=== PATIENT | female | born 1935 | race Caucasian/White ===

== ENCOUNTER 2021-07-30 09:59 | Inpatient (IN) ==
[2021-07-30] MEDS ORDERED: Ondansetron 4 MG/2 ML VIAL IVP PRN (14:00)
[2021-07-30] MEDS ORDERED: Naloxone 0.4 MG/ML INJ IVP PRN (14:00)
[2021-07-30] MEDS ORDERED: Nitroglycerin 0.4 MG TAB.SUBL SL PRN (14:29)
[2021-07-30] MEDS: Ringers Solution, Lactated 1,000 ML IVC SCH (14:41)
[2021-07-30] MEDS: rOPINIRole 0.25 MG TABLET PO SCH (20:45)
[2021-07-31 02:37] LABS: Alanine Aminotransferase 9 Units/L (7-52); Albumin 3.1 g/dL (3.5-5.7); Albumin/Globulin Ratio 1.1 (1.1-2.2); Alkaline Phosphatase 72 Units/L (34-104); Aspartate Amino Transferase 20 Units/L (13-39); BUN/Creatinine Ratio 13 (6-26); Bilirubin,Total 0.5 mg/dL (0.3-1.0); Blood Urea Nitrogen 6 mg/dL (8-23); Calcium 8.3 mg/dL (8.6-10.3); Carbon Dioxide 24 mEq/L (23-29); Chloride 104 mEq/L (98-107); Globulin 2.8 g/dL (2.4-3.5); Glucose 89 mg/dL (70-105); Magnesium 1.4 mg/dL (1.6-2.6); Osmolality,Calculated 283 (280-300); Phosphorous 2.4 mg/dL (2.7-4.5); Potassium 3.2 mEq/L (3.5-5.1); Sodium 138 mEq/L (136-145); Total Protein 5.9 g/dL (6.4-8.9); eGFR For African Americans > 60 (> 60); eGFR For Non-African Americans > 60 (> 60)
[2021-07-31] MEDS: Ringers Solution, Lactated 1,000 ML IVC SCH (03:06)
[2021-07-31] MEDS: *HR* Enoxaparin 40 MG/0.4 ML SYRINGE SQ SCH (06:24)
[2021-07-31] MEDS: Pantoprazole 40 MG VIAL IVP SCH (07:47)
[2021-07-31] MEDS: [UNRECOGNIZED DRUG - OTHER] PO SCH ×4 (10:29→20:53)
[2021-07-31] MEDS: amLODIPine 5 MG TABLET PO SCH (10:43)
[2021-07-31] MEDS ORDERED: Ringers Solution, Lactated 1,000 ML IVC SCH (12:30)
[2021-07-31] MEDS: traZODone 50 MG TABLET PO SCH (20:39)
[2021-07-31] MEDS: Mirtazapine 15 MG TABLET PO SCH (20:39)
[2021-07-31] MEDS: rOPINIRole 0.25 MG TABLET PO SCH (20:46)
[2021-07-31] MEDS ORDERED: Calcium Gluconate 1gm/50mL 1 GM/50 ML BAG IVPB ONE (23:30)
[2021-07-31] MEDS ORDERED: Potassium Phosphate 44 MEQ in 0.9 % Sodium Chloride 250 ML IVPB ONE (23:45)
[2021-08-01 02:35] LABS: Basophils % 0.3 %; Eosinophils # 0.1 K/mcL (0.0-0.6); Eosinophils % 1.3 %; Hemoglobin 12.5 g/dL (11.5-15.4); Immature Granulocytes % 0.4 % (0-4); Lymphocytes # 2.3 K/mcL (0.6-4.6); Lymphocytes % 31.4 %; Mean Corpuscular HGB Conc 32.1 g/dL (31.6-35.5); Mean Corpuscular Hemoglobin 29.9 pg (28.0-33.3); Mean Corpuscular Volume 93.3 fL (83.0-100.0); Mean Platelet Volume 10.4 fL (9.4-12.4); Monocytes # 0.5 K/mcL (0.0-1.3); Monocytes % 6.6 %; Neutrophils # 4.5 K/mcL (1.6-8.9); Platelet Count 144 K/mcL (140-400); Red Blood Count 4.18 M/mcL (3.82-4.97); White Blood Count 7.4 K/mcL (4.3-11.1)
[2021-08-01 03:01] LABS: BUN/Creatinine Ratio 10 (6-26); Blood Urea Nitrogen 5 mg/dL (8-23); Calcium 8.8 mg/dL (8.6-10.3); Carbon Dioxide 27 mEq/L (23-29); Chloride 100 mEq/L (98-107); Chol/HDL Ratio 2.7 (0-4.9); Cholesterol 122 mg/dL (< 200); Glucose 118 mg/dL (70-105); HDL Cholesterol 46 mg/dL (40-59); LDL Cholesterol,Calculated 54 mg/dL (< 100); Osmolality,Calculated 286 (280-300); Potassium 3.3 mEq/L (3.5-5.1); Sodium 139 mEq/L (136-145); Triglycerides 111 mg/dL (< 150); eGFR For African Americans > 60 (> 60); eGFR For Non-African Americans > 60 (> 60)
[2021-08-01] MEDS: *HR* Enoxaparin 40 MG/0.4 ML SYRINGE SQ SCH (05:53)
[2021-08-01] MEDS ORDERED: Potassium Phosphate 44 MEQ in 0.9 % Sodium Chloride 250 ML IVPB ONE (07:13)
[2021-08-01] MEDS: amLODIPine 5 MG TABLET PO SCH (10:30)
[2021-08-01] MEDS: Pantoprazole 40 MG VIAL IVP SCH (10:30)
[2021-08-01] MEDS: [UNRECOGNIZED DRUG - OTHER] PO SCH ×4 (10:34→20:28)
[2021-08-01] MEDS ORDERED: *HR* FentaNYL PATCH 12 MCG PATCH TD SCH (14:00)
[2021-08-01] MEDS ORDERED: *HR* FentaNYL PATCH 50 MCG PATCH TD SCH (14:00)
[2021-08-01] MEDS: rOPINIRole 0.25 MG TABLET PO SCH (20:27)
[2021-08-01] MEDS: traZODone 50 MG TABLET PO SCH (20:27)
[2021-08-01] MEDS: Mirtazapine 15 MG TABLET PO SCH (20:27)
[2021-08-01] MEDS: PrednisoLONE Acetate 1% Opth 5 ML BOTTLE BOTH EYES SCH (20:28)
[2021-08-02] MEDS: *HR* Enoxaparin 40 MG/0.4 ML SYRINGE SQ SCH (05:39)
[2021-08-02] MEDS: Pantoprazole 40 MG VIAL IVP SCH (09:48)
[2021-08-02] MEDS: amLODIPine 5 MG TABLET PO SCH (09:49)
[2021-08-02] MEDS: [UNRECOGNIZED DRUG - OTHER] PO SCH (09:49)
[2021-08-02] MEDS ORDERED: Lidocaine -MPF 2% 5 ML VIAL ONE (14:30)
[2021-08-02] MEDS ORDERED: *HR* FentaNYL (PF) 100 MCG/2 ML VIAL ONE (14:30)
[2021-08-02] MEDS ORDERED: *HR* Propofol 200 MG/20 ML VIAL IVP ONE (14:31)
[2021-08-02] MEDS ORDERED: Ondansetron 4 MG/2 ML VIAL ONE (14:31)
[2021-08-02] MEDS ORDERED: Lidocaine HCL 4 ML Topical Solution (Laryng-O-Jet Kit Sterile Pak) TP ONE (14:32)
[2021-08-02] MEDS ORDERED: Ringers Solution, Lactated 1,000 ML IVC SCH (14:45)
[2021-08-02] MEDS ORDERED: Ipratropium/Albuterol Neb 3 ML IH PRN (14:56)
[2021-08-02] MEDS: rOPINIRole 0.25 MG TABLET PO SCH (20:18)
[2021-08-02] MEDS: PrednisoLONE Acetate 1% Opth 5 ML BOTTLE BOTH EYES SCH (20:18)
[2021-08-02] MEDS: traZODone 50 MG TABLET PO SCH (20:19)
[2021-08-02] MEDS: Mirtazapine 15 MG TABLET PO SCH (20:19)
[2021-08-03 02:27] LABS: Basophils % 0.3 %; Hematocrit 34.6 % (35.3-44.9); Immature Granulocytes % 0.3 % (0-4); Lymphocytes # 0.6 K/mcL (0.6-4.6); Lymphocytes % 17.3 %; Mean Corpuscular HGB Conc 31.8 g/dL (31.6-35.5); Mean Corpuscular Hemoglobin 29.5 pg (28.0-33.3); Mean Corpuscular Volume 92.8 fL (83.0-100.0); Mean Platelet Volume 10.4 fL (9.4-12.4); Monocytes # 0.2 K/mcL (0.0-1.3); Monocytes % 6.4 %; Neutrophils # 2.6 K/mcL (1.6-8.9); Platelet Count 113 K/mcL (140-400); Red Blood Count 3.73 M/mcL (3.82-4.97); Red Cell Distribution Width 13.3 % (11.5-14.5); Segmented Neutrophils % 75.7 %; White Blood Count 3.4 K/mcL (4.3-11.1)
[2021-08-03 02:46] LABS: BUN/Creatinine Ratio 21 (6-26); Blood Urea Nitrogen 10 mg/dL (8-23); Calcium 8.4 mg/dL (8.6-10.3); Carbon Dioxide 28 mEq/L (23-29); Chloride 106 mEq/L (98-107); Glucose 146 mg/dL (70-105); Magnesium 1.8 mg/dL (1.6-2.6); Osmolality,Calculated 290 (280-300); Phosphorous 3.4 mg/dL (2.7-4.5); Potassium 4.4 mEq/L (3.5-5.1); Sodium 139 mEq/L (136-145); eGFR For African Americans > 60 (> 60); eGFR For Non-African Americans > 60 (> 60)
[2021-08-03] MEDS: *HR* Enoxaparin 40 MG/0.4 ML SYRINGE SQ SCH (05:32)
[2021-08-03] MEDS ORDERED: polyethylene glycoL 3350 17 GM POWD.PACK PO PRN (12:50)
[2021-08-03] MEDS: amLODIPine 5 MG TABLET PO SCH (20:10)
[2021-08-03] MEDS: Lactobacillus 1 EACH CAP.SPRINK PO SCH ×2 (20:10→20:18)
[2021-08-03] MEDS: rOPINIRole 0.25 MG TABLET PO SCH (20:16)
[2021-08-03] MEDS: Mirtazapine 15 MG TABLET PO SCH (20:16)
[2021-08-03] MEDS: traZODone 50 MG TABLET PO SCH (20:16)
[2021-08-03] MEDS: PrednisoLONE Acetate 1% Opth 5 ML BOTTLE BOTH EYES SCH (20:19)
[2021-08-04 03:20] VITALS: PULSE 73
[2021-08-04] MEDS: *HR* Enoxaparin 40 MG/0.4 ML SYRINGE SQ SCH (05:22)
[2021-08-04 07:30] VITALS: BP 122/69; TEMP 98.5; O2SAT 93
[2021-08-04] MEDS: Lactobacillus 1 EACH CAP.SPRINK PO SCH (08:45)
[2021-08-04] MEDS: amLODIPine 5 MG TABLET PO SCH (09:05)
[2021-08-04 10:58] LABS: Adenovirus Not Detected (Not Detect); Bordetella Pertussis Not Detected (Not Detect); Chlamydophila pneumoniae Not Detected (Not Detect); Coronavirus 229E Not Detected (Not Detect); Coronavirus HKU1 Not Detected (Not Detect); Coronavirus NL63 Not Detected (Not Detect); Coronavirus OC43 Not Detected (Not Detect); Human Metapneumovirus Not Detected (Not Detect); Human Rhinovirus/Enterovirus Not Detected (Not Detect); Influenza A Subtype 2009 H1 Not Detected (Not Detect); Influenza B Not Detected (Not Detect); Mycoplasma pneumoniae Not Detected (Not Detect); Parainfluenza Virus 1 Not Detected (Not Detect); Parainfluenza Virus 2 Not Detected (Not Detect); Parainfluenza Virus 3 Not Detected (Not Detect); Parainfluenza Virus 4 Not Detected (Not Detect); Respiratory Syncytial Virus Not Detected (Not Detect); SARS-CoV-2 Not Detected (Not Detect)
== END 2021-08-04 13:22 | DRG 435 ==
LOC: 3ANU → SUATTDRO 13:07
PROVIDERS: ADMIT Student in an Organized Health Care Education/Training Program; ATTEND Family Medicine
PROC: ENDOEUS (2021-08-02 14:00)

== ENCOUNTER 2022-03-18 15:34 | Inpatient (IN) ==
[2022-03-18 17:48] LABS: Basophils % 0.1 %; Eosinophils % 0.1 %; Mean Corpuscular Volume 96.9 fL (83.0-100.0)
[2022-03-18 17:50] LABS: Hematocrit 28.3 % (35.3-44.9); Immature Granulocytes % 2.2 % (0-4); Immature Platelets 12.7 % (1.1-6.1); Lymphocytes # 0.4 K/mcL (0.6-4.6); Lymphocytes % 4.9 %; Mean Corpuscular HGB Conc 31.8 g/dL (31.6-35.5); Mean Corpuscular Hemoglobin 30.8 pg (28.0-33.3); Monocytes # 0.1 K/mcL (0.0-1.3); Monocytes % 1.4 %; Neutrophils # 6.7 K/mcL (1.6-8.9); Red Blood Count 2.92 M/mcL (3.82-4.97); Red Cell Distribution Width 19.3 % (11.5-14.5); Segmented Neutrophils % 91.3 %; White Blood Count 7.3 K/mcL (4.3-11.1)
[2022-03-18 17:55] LABS: INR 1.7; Prothrombin Time 18.4 Seconds (9.4-12.1)
[2022-03-18 18:07] LABS: Alanine Aminotransferase 11 Units/L (7-52); Albumin 2.4 g/dL (3.5-5.7); Albumin/Globulin Ratio 0.8 (1.1-2.2); Alkaline Phosphatase 75 Units/L (34-104); Aspartate Amino Transferase 25 Units/L (13-39); BUN/Creatinine Ratio 22 (6-26); Bilirubin,Direct 0.2 mg/dL (0.0-0.2); Bilirubin,Indirect 0.5 mg/dL (0.0-1.0); Bilirubin,Total 0.7 mg/dL (0.3-1.0); Blood Urea Nitrogen 20 mg/dL (8-23); Calcium 7.9 mg/dL (8.6-10.3); Carbon Dioxide 32 mEq/L (23-29); Chloride 95 mEq/L (98-107); Globulin 2.9 g/dL (2.4-3.5); Glucose 154 mg/dL (70-105); Osmolality,Calculated 282 (280-300); Potassium 3.8 mEq/L (3.5-5.1); Sodium 133 mEq/L (136-145); Total Protein 5.3 g/dL (6.4-8.9); Troponin I 0.03 ng/mL (< 0.04); eGFR For African Americans > 60 (> 60); eGFR For Non-African Americans 60 (> 60)
[2022-03-18 18:15] LABS: Bilirubin,Urine Negative (Negative); Blood,Urine Trace (Negative); Calcium Oxalate Crystals,Urine Present per hpf; Clarity,Urine Turbid (Clear); Color,Urine Yellow (Yellow); Glucose,Urine (UA) Normal (Normal); Hyaline Casts,Urine Moderate per lpf (None Seen); Ketones,Urine Negative (Negative); Leukocyte Esterase,Urine Negative (Negative); Mucus,Urine Few per lpf (None-Few); Nitrite,Urine Negative (Negative); PH,Urine 5.5 pH Units (5.0-8.0); Protein,Urine Trace mg/dL (Neg-Trace); Specific Gravity,Urine 1.019 (1.010-1.025); Squamous Epithelial Cell,Urine Few per hpf (None-Few); Urobilinogen,Urine Normal (Normal)
[2022-03-18 18:21] LABS: Platelet Count 50 K/mcL (140-400)
[2022-03-18] MEDS ORDERED: 0.9 % Sodium Chloride 1,000 ML IV ONE ×2 (20:29→22:03)
[2022-03-18] MEDS ORDERED: Iopamidol - 370 500 ML MLS IVP ONE (20:30)
[2022-03-18 22:13] LABS: Adenovirus Not Detected (Not Detect); Bordetella Pertussis Not Detected (Not Detect); Chlamydophila pneumoniae Not Detected (Not Detect); Coronavirus 229E Not Detected (Not Detect); Coronavirus HKU1 Not Detected (Not Detect); Coronavirus NL63 Not Detected (Not Detect); Coronavirus OC43 Not Detected (Not Detect); Human Metapneumovirus Not Detected (Not Detect); Human Rhinovirus/Enterovirus Not Detected (Not Detect); Influenza A Subtype 2009 H1 Not Detected (Not Detect); Influenza B Not Detected (Not Detect); Mycoplasma pneumoniae Not Detected (Not Detect); Parainfluenza Virus 1 Not Detected (Not Detect); Parainfluenza Virus 2 Not Detected (Not Detect); Parainfluenza Virus 3 Not Detected (Not Detect); Parainfluenza Virus 4 Not Detected (Not Detect); Respiratory Syncytial Virus Not Detected (Not Detect); SARS-CoV-2 Not Detected (Not Detect)
[2022-03-18] MEDS ORDERED: Naloxone 0.4 MG/ML INJ IVP PRN (23:23)
[2022-03-19] MEDS: Cefepime HCl 2,000 MG in 0.9 % Sodium Chloride 10 ML IVP SCH ×3 (02:19→15:25)
[2022-03-19] MEDS: *HR* OxyCODONE Immed Rel 5 MG TABLET PO PRN ×3 (02:33→13:27)
[2022-03-19 03:04] LABS: Hemoglobin 8.3 g/dL (11.5-15.4); Mean Corpuscular Hemoglobin 30.5 pg (28.0-33.3); Red Blood Count 2.72 M/mcL (3.82-4.97)
[2022-03-19 03:06] LABS: Hematocrit 26.3 % (35.3-44.9); Immature Platelets 11.2 % (1.1-6.1); Mean Corpuscular HGB Conc 31.6 g/dL (31.6-35.5); Mean Corpuscular Volume 96.7 fL (83.0-100.0); Mean Platelet Volume 12.5 fL (9.4-12.4); Red Cell Distribution Width 19.5 % (11.5-14.5); White Blood Count 3.4 K/mcL (4.3-11.1)
[2022-03-19 03:10] LABS: Platelet Count 45 K/mcL (140-400)
[2022-03-19 03:22] LABS: Alanine Aminotransferase 9 Units/L (7-52); Albumin 2.3 g/dL (3.5-5.7); Albumin/Globulin Ratio 0.9 (1.1-2.2); Alkaline Phosphatase 70 Units/L (34-104); Aspartate Amino Transferase 23 Units/L (13-39); BUN/Creatinine Ratio 23 (6-26); Bilirubin,Total 0.7 mg/dL (0.3-1.0); Blood Urea Nitrogen 18 mg/dL (8-23); Calcium 7.4 mg/dL (8.6-10.3); Carbon Dioxide 31 mEq/L (23-29); Chloride 100 mEq/L (98-107); Globulin 2.5 g/dL (2.4-3.5); Glucose 111 mg/dL (70-105); Osmolality,Calculated 283 (280-300); Potassium 3.5 mEq/L (3.5-5.1); Sodium 135 mEq/L (136-145); Total Protein 4.8 g/dL (6.4-8.9); eGFR For African Americans > 60 (> 60); eGFR For Non-African Americans > 60 (> 60)
[2022-03-19 03:44] LABS: Eosinophils # 0.1 K/mcL (0.0-0.6); Lymphocytes # 0.7 K/mcL (0.6-4.6); Neutrophils # 2.6 K/mcL (1.6-8.9)
[2022-03-19 03:45] LABS: Anisocytosis 1+ (Not Present); Hypochromasia Present (Not Present); Platelet Estimate Decreased (Normal)
[2022-03-19] MEDS ORDERED: *HR* Enoxaparin 30 MG/0.3 ML SYRINGE SQ SCH (06:00)
[2022-03-19] MEDS ORDERED: Morphine Sulfate Oral CONC 10 MG/0.5 ML ORAL.SYG PO PRN (07:28)
[2022-03-19] MEDS ORDERED: Ipratropium/Albuterol Neb 3 ML IH PRN ×2 (07:28→09:17)
[2022-03-19] MEDS ORDERED: *HR* FentaNYL PATCH 75 MCG PATCH TD SCH (07:30)
[2022-03-19] MEDS ORDERED: Naloxone 0.4 MG/ML INJ IVP PRN (09:17)
[2022-03-19] MEDS: Morphine Sulfate Oral CONC 10 MG/0.5 ML ORAL.SYG PO PRN ×2 (11:31→23:45)
[2022-03-19] MEDS ORDERED: Haloperidol Lactate 5 MG/ML VIAL IM ONE (20:27)
[2022-03-19] MEDS: rOPINIRole 0.25 MG TABLET PO SCH (20:43)
[2022-03-19] MEDS ORDERED: rOPINIRole 0.25 MG TABLET PO SCH (21:00)
[2022-03-20] MEDS: Cefepime HCl 2,000 MG in 0.9 % Sodium Chloride 10 ML IVP SCH ×4 (00:04→22:55)
[2022-03-20] MEDS: *HR* Enoxaparin 40 MG/0.4 ML SYRINGE SQ SCH (06:37)
[2022-03-20 08:29] LABS: Eosinophils % 0.2 %; Mean Platelet Volume 12.2 fL (9.4-12.4)
[2022-03-20 08:31] LABS: Hematocrit 25.6 % (35.3-44.9); Hemoglobin 8.4 g/dL (11.5-15.4); Immature Granulocytes % 0.7 % (0-4); Immature Platelets 8.5 % (1.1-6.1); Lymphocytes # 0.7 K/mcL (0.6-4.6); Lymphocytes % 16.6 %; Mean Corpuscular HGB Conc 32.8 g/dL (31.6-35.5); Mean Corpuscular Hemoglobin 30.8 pg (28.0-33.3); Mean Corpuscular Volume 93.8 fL (83.0-100.0); Monocytes # 0.2 K/mcL (0.0-1.3); Monocytes % 4.9 %; Neutrophils # 3.3 K/mcL (1.6-8.9); Red Blood Count 2.73 M/mcL (3.82-4.97); Red Cell Distribution Width 18.7 % (11.5-14.5); Segmented Neutrophils % 77.6 %; White Blood Count 4.3 K/mcL (4.3-11.1)
[2022-03-20 08:49] LABS: Platelet Count 32 K/mcL (140-400)
[2022-03-20 08:50] LABS: BUN/Creatinine Ratio 22 (6-26); Blood Urea Nitrogen 13 mg/dL (8-23); Calcium 7.8 mg/dL (8.6-10.3); Carbon Dioxide 30 mEq/L (23-29); Chloride 99 mEq/L (98-107); Glucose 100 mg/dL (70-105); Magnesium 1.3 mg/dL (1.6-2.6); Osmolality,Calculated 276 (280-300); Potassium 3.2 mEq/L (3.5-5.1); Sodium 133 mEq/L (136-145); eGFR For African Americans > 60 (> 60); eGFR For Non-African Americans > 60 (> 60)
[2022-03-20] MEDS: *HR* OxyCODONE Immed Rel 5 MG TABLET PO PRN (09:55)
[2022-03-20] MEDS ORDERED: Ondansetron ODT 4 MG TAB.RAPDIS PO PRN (11:26)
[2022-03-20] MEDS ORDERED: Iopamidol - 370 500 ML MLS IVP ONE (12:00)
[2022-03-20] MEDS: *HR* Methadone 5 MG TABLET PO SCH ×2 (13:16→22:54)
[2022-03-20] MEDS: Morphine Sulfate Oral CONC 10 MG/0.5 ML ORAL.SYG PO PRN (15:19)
[2022-03-20] MEDS: Gabapentin 300 MG CAPSULE PO SCH ×2 (15:19→22:55)
[2022-03-20] MEDS ORDERED: *HR* OxyCODONE Immed Rel 5 MG TABLET PO PRN ×2 (16:10→16:15)
[2022-03-20] MEDS: Sennosides/Docusate Sodium TABLET PO SCH (20:26)
[2022-03-20] MEDS: traZODone 50 MG TABLET PO SCH (20:27)
[2022-03-20] MEDS: rOPINIRole 0.25 MG TABLET PO SCH (20:28)
[2022-03-21 05:14] LABS: Eosinophils % 0.4 %; Red Cell Distribution Width 18.8 % (11.5-14.5)
[2022-03-21 05:16] LABS: Hemoglobin 7.8 g/dL (11.5-15.4); Lymphocytes # 0.9 K/mcL (0.6-4.6); Lymphocytes % 17.2 %; Mean Corpuscular HGB Conc 32.5 g/dL (31.6-35.5); Mean Corpuscular Hemoglobin 30.5 pg (28.0-33.3); Mean Corpuscular Volume 93.8 fL (83.0-100.0); Mean Platelet Volume 12.9 fL (9.4-12.4); Monocytes # 0.3 K/mcL (0.0-1.3); Monocytes % 6.4 %; Neutrophils # 3.8 K/mcL (1.6-8.9); Red Blood Count 2.56 M/mcL (3.82-4.97)
[2022-03-21 05:28] LABS: BUN/Creatinine Ratio 16 (6-26); Blood Urea Nitrogen 10 mg/dL (8-23); Calcium 7.6 mg/dL (8.6-10.3); Carbon Dioxide 30 mEq/L (23-29); Chloride 103 mEq/L (98-107); Glucose 126 mg/dL (70-105); Magnesium 1.7 mg/dL (1.6-2.6); Osmolality,Calculated 285 (280-300); Phosphorous 1.6 mg/dL (2.7-4.5); Potassium 3.7 mEq/L (3.5-5.1); Sodium 137 mEq/L (136-145); eGFR For African Americans > 60 (> 60); eGFR For Non-African Americans > 60 (> 60)
[2022-03-21 06:06] LABS: Platelet Count 26 K/mcL (140-400)
[2022-03-21 06:50] LABS: Platelet Estimate Marked Decrease (Normal)
[2022-03-21] MEDS: Mirtazapine 15 MG TABLET PO SCH (08:25)
[2022-03-21] MEDS: Gabapentin 300 MG CAPSULE PO SCH ×2 (08:25→16:33)
[2022-03-21] MEDS: *HR* Methadone 5 MG TABLET PO SCH ×2 (08:25→16:05)
[2022-03-21] MEDS: Cefepime HCl 2,000 MG in 0.9 % Sodium Chloride 10 ML IVP SCH (08:26)
[2022-03-21] MEDS: *HR* Enoxaparin 40 MG/0.4 ML SYRINGE SQ SCH (18:07)
[2022-03-21] MEDS: Sennosides/Docusate Sodium TABLET PO SCH (20:40)
[2022-03-21] MEDS: traZODone 50 MG TABLET PO SCH (20:40)
[2022-03-21] MEDS: rOPINIRole 0.25 MG TABLET PO SCH (20:40)
[2022-03-22] MEDS: Gabapentin 300 MG CAPSULE PO SCH ×3 (01:05→16:18)
[2022-03-22] MEDS: *HR* Methadone 5 MG TABLET PO SCH ×3 (01:06→16:18)
[2022-03-22 05:50] LABS: Basophils % 0.2 %
[2022-03-22 05:51] LABS: Eosinophils # 0.1 K/mcL (0.0-0.6); Eosinophils % 1.2 %; Hematocrit 25.3 % (35.3-44.9); Hemoglobin 8.1 g/dL (11.5-15.4); Immature Granulocytes % 1.7 % (0-4); Immature Platelets 8.6 % (1.1-6.1); Lymphocytes # 0.7 K/mcL (0.6-4.6); Lymphocytes % 16.2 %; Mean Corpuscular Hemoglobin 30.3 pg (28.0-33.3); Mean Corpuscular Volume 94.8 fL (83.0-100.0); Monocytes # 0.5 K/mcL (0.0-1.3); Monocytes % 11.2 %; Neutrophils # 2.9 K/mcL (1.6-8.9); Nucleated Red Blood Cells 2.4 /100 WBC (0); Red Blood Count 2.67 M/mcL (3.82-4.97); Segmented Neutrophils % 69.5 %; White Blood Count 4.2 K/mcL (4.3-11.1)
[2022-03-22 06:02] LABS: Platelet Count 34 K/mcL (140-400)
[2022-03-22 06:06] LABS: Magnesium 1.6 mg/dL (1.6-2.6); Phosphorous 1.7 mg/dL (2.7-4.5)
[2022-03-22] MEDS ORDERED: *HR* FentaNYL PATCH 75 MCG PATCH TD SCH (07:30)
[2022-03-22] MEDS: Mirtazapine 15 MG TABLET PO SCH (08:57)
[2022-03-22] MEDS: levoFLOXacin 750 MG TABLET PO SCH (08:58)
[2022-03-22 13:18] LABS: Influenza A PCR Negative (Negative); Influenza B PCR Negative (Negative); Resp. Syncytial Virus PCR Negative (Negative)
[2022-03-22 13:22] LABS: SARS-CoV-2 by PCR (In House) Negative (Negative)
[2022-03-22] MEDS ORDERED: 0.9 % Sodium Chloride 250 ML IVC SCH (14:00)
[2022-03-22] MEDS ORDERED: 0.9 % Sodium Chloride 250 ML ONE (17:42)
[2022-03-22] MEDS: rOPINIRole 0.25 MG TABLET PO SCH (20:22)
[2022-03-22] MEDS: traZODone 50 MG TABLET PO SCH (20:22)
[2022-03-22] MEDS: Sennosides/Docusate Sodium TABLET PO SCH (20:22)
[2022-03-23] MEDS: Gabapentin 300 MG CAPSULE PO SCH ×2 (00:02→07:46)
[2022-03-23] MEDS: *HR* Methadone 5 MG TABLET PO SCH ×2 (00:02→07:46)
[2022-03-23 05:41] LABS: Red Cell Distribution Width 19.2 % (11.5-14.5)
[2022-03-23 05:43] LABS: Hematocrit 25.7 % (35.3-44.9); Hemoglobin 8.1 g/dL (11.5-15.4); Immature Platelets 7.4 % (1.1-6.1); Mean Corpuscular HGB Conc 31.5 g/dL (31.6-35.5); Mean Corpuscular Hemoglobin 30.5 pg (28.0-33.3); Mean Corpuscular Volume 96.6 fL (83.0-100.0); Mean Platelet Volume 11.3 fL (9.4-12.4); Red Blood Count 2.66 M/mcL (3.82-4.97); White Blood Count 4.1 K/mcL (4.3-11.1)
[2022-03-23] MEDS: levoFLOXacin 750 MG TABLET PO SCH (08:06)
[2022-03-23] MEDS: Mirtazapine 15 MG TABLET PO SCH (08:07)
[2022-03-23 08:37] LABS: BUN/Creatinine Ratio 17 (6-26); Blood Urea Nitrogen 9 mg/dL (8-23); Calcium 7.3 mg/dL (8.6-10.3); Carbon Dioxide 30 mEq/L (23-29); Chloride 106 mEq/L (98-107); Glucose 164 mg/dL (70-105); Osmolality,Calculated 288 (280-300); Potassium 3.6 mEq/L (3.5-5.1); Sodium 138 mEq/L (136-145); eGFR For African Americans > 60 (> 60); eGFR For Non-African Americans > 60 (> 60)
[2022-03-23 10:41] VITALS: TEMP 98.1; O2SAT 93
[2022-03-23] MEDS ORDERED: 0.9 % Sodium Chloride 250 ML IVC SCH (11:45)
[2022-03-23] MEDS ORDERED: Albumin 25% 25gram/100mL 25 GM/100 ML IV.SOLN IVPB ONE (13:44)
[2022-03-23 15:01] LABS: Appearance of Peritoneal Fl HAZY (Clear)
[2022-03-23 15:14] LABS: RBC,Peritoneal Fluid 3000 RBC/mcL
[2022-03-23 15:16] LABS: Influenza A PCR Negative (Negative); Influenza B PCR Negative (Negative); Resp. Syncytial Virus PCR Negative (Negative)
[2022-03-23 15:28] VITALS: BP 104/60; PULSE 78
[2022-03-23 15:54] LABS: SARS-CoV-2 by PCR (In House) Negative (Negative)
[2022-03-23 16:26] LABS: Glucose,Peritoneal Fluid 99 mg/dL (No Ref Range); LDH,Peritoneal Fluid 80 Units/L (No Ref Range); Total Protein,Peritoneal Fluid < 2.0 g/dL
[2022-03-23 17:04] LABS: Basophils,Peritoneal Fluid 0 %; Eosinophils,Peritoneal Fluid 0 %
== END 2022-03-23 18:50 | DRG 871 ==
LOC: ICNU 15:34 → EMEROOARM 15:34 → SUATTDRO 23:40 → ICNU 03-19 00:07 → 3ANU 03-19 10:59
PROVIDERS: ADMIT Internal Medicine; ATTEND Internal Medicine

== ENCOUNTER 2022-04-13 10:37 | Inpatient (IN) ==
[2022-04-13] MEDS ORDERED: Morphine Sulfate 2 MG/ML SYRINGE IVP ONE (13:03)
[2022-04-13 14:17] LABS: Basophils % 0.2 %; Eosinophils % 0.7 %; Hemoglobin 11.4 g/dL (11.5-15.4); Mean Corpuscular Volume 97.2 fL (83.0-100.0); Red Cell Distribution Width 21.6 % (11.5-14.5)
[2022-04-13 14:19] LABS: Hematocrit 34.5 % (35.3-44.9); Immature Granulocytes % 0.3 % (0-4); Immature Platelets 6.5 % (1.1-6.1); Lymphocytes # 1.2 K/mcL (0.6-4.6); Lymphocytes % 20.5 %; Mean Corpuscular Hemoglobin 32.1 pg (28.0-33.3); Mean Platelet Volume 11.3 fL (9.4-12.4); Monocytes # 0.7 K/mcL (0.0-1.3); Monocytes % 11.3 %; Neutrophils # 3.9 K/mcL (1.6-8.9); Platelet Count 105 K/mcL (140-400); Red Blood Count 3.55 M/mcL (3.82-4.97); White Blood Count 5.8 K/mcL (4.3-11.1)
[2022-04-13 14:31] LABS: Bacteria,Urine Few per hpf (None-Few); Bilirubin,Urine Moderate (Negative); Blood,Urine Negative (Negative); Clarity,Urine Turbid (Clear); Color,Urine Dark-Yellow (Yellow); Glucose,Urine (UA) Normal (Normal); Hyaline Casts,Urine Few per lpf (None Seen); Ketones,Urine Negative (Negative); Leukocyte Esterase,Urine Negative (Negative); Mucus,Urine Few per lpf (None-Few); Nitrite,Urine Negative (Negative); Protein,Urine Trace mg/dL (Neg-Trace); Squamous Epithelial Cell,Urine Few per hpf (None-Few); Urobilinogen,Urine Normal (Normal)
[2022-04-13 14:38] LABS: Albumin 2.5 g/dL (3.5-5.7); Albumin/Globulin Ratio 0.8 (1.1-2.2); Bilirubin,Direct 7.3 mg/dL (0.0-0.2); Bilirubin,Indirect 3.9 mg/dL (0.0-1.0); Bilirubin,Total 11.2 mg/dL (0.3-1.0); Potassium 4.3 mEq/L (3.5-5.1); Total Protein 5.5 g/dL (6.4-8.9)
[2022-04-13] MEDS ORDERED: Ondansetron 4 MG/2 ML VIAL IVP PRN (16:00)
[2022-04-13] MEDS ORDERED: Naloxone 0.4 MG/ML INJ IVP PRN (16:00)
[2022-04-13] MEDS ORDERED: *HR* HYDROcodone/Acet 5/325 mg TABLET PO PRN (16:00)
[2022-04-13] MEDS ORDERED: Morphine Sulfate 2 MG/ML SYRINGE IVP PRN (16:04)
[2022-04-14] MEDS: *HR* OxyCODONE Immed Rel 5 MG TABLET PO PRN ×2 (05:47→15:53)
[2022-04-14 08:53] LABS: Basophils % 0.2 %; Eosinophils # 0.1 K/mcL (0.0-0.6); Eosinophils % 1.5 %; Hematocrit 32.9 % (35.3-44.9); Immature Granulocytes % 0.4 % (0-4); Mean Corpuscular HGB Conc 33.4 g/dL (31.6-35.5); Mean Corpuscular Hemoglobin 31.7 pg (28.0-33.3); Mean Corpuscular Volume 94.8 fL (83.0-100.0); Mean Platelet Volume 11.1 fL (9.4-12.4); Monocytes # 0.7 K/mcL (0.0-1.3); Monocytes % 13.3 %; Neutrophils # 3.5 K/mcL (1.6-8.9); Platelet Count 103 K/mcL (140-400); Red Blood Count 3.47 M/mcL (3.82-4.97); Red Cell Distribution Width 21.7 % (11.5-14.5); Segmented Neutrophils % 65.6 %; White Blood Count 5.3 K/mcL (4.3-11.1)
[2022-04-14 08:56] LABS: Prothrombin Time 21.8 Seconds (9.4-12.1)
[2022-04-14 09:11] LABS: Albumin 2.3 g/dL (3.5-5.7); Albumin/Globulin Ratio 0.9 (1.1-2.2); Bilirubin,Direct 7.3 mg/dL (0.0-0.2); Bilirubin,Indirect 3.8 mg/dL (0.0-1.0); Bilirubin,Total 11.1 mg/dL (0.3-1.0); Calcium 7.9 mg/dL (8.6-10.3); Globulin 2.6 g/dL (2.4-3.5); Magnesium 1.4 mg/dL (1.6-2.6); Potassium 4.1 mEq/L (3.5-5.1); Total Protein 4.9 g/dL (6.4-8.9)
[2022-04-14] MEDS ORDERED: Lidocaine HCL 4 ML Topical Solution (Laryng-O-Jet Kit Sterile Pak) TP ONE (09:26)
[2022-04-14] MEDS ORDERED: Ondansetron 4 MG/2 ML VIAL ONE (09:26)
[2022-04-14] MEDS ORDERED: *HR* Succinylcholine 200 MG/10 ML VIAL IVP ONE (09:26)
[2022-04-14] MEDS ORDERED: Lidocaine -MPF 2% 5 ML VIAL ONE (09:26)
[2022-04-14] MEDS ORDERED: *HR* Rocuronium Bromide 50 MG/5 ML VIAL ONE (09:26)
[2022-04-14] MEDS ORDERED: *HR* Propofol 200 MG/20 ML VIAL IVP ONE (09:27)
[2022-04-14] MEDS ORDERED: *HR* FentaNYL (PF) 100 MCG/2 ML VIAL ONE (09:27)
[2022-04-14] MEDS ORDERED: Naloxone 0.4 MG/ML INJ IVP PRN (10:07)
[2022-04-14] MEDS ORDERED: Albuterol 2.5 MG/3 ML NEBULIZER IH PRN (10:07)
[2022-04-14] MEDS ORDERED: Nitroglycerin 0.4 MG TAB.SUBL SL PRN ×2 (10:07→16:00)
[2022-04-14] MEDS ORDERED: Ondansetron 4 MG/2 ML VIAL IVP PRN (10:07)
[2022-04-14] MEDS ORDERED: *HR* FentaNYL (PF) 100 MCG/2 ML VIAL IVP PRN (10:07)
[2022-04-14] MEDS ORDERED: Melatonin 3 MG TABLET PO PRN (16:00)
[2022-04-14] MEDS ORDERED: Hyoscyamine SL 0.125 MG TAB.SUBL SL PRN (16:00)
[2022-04-14] MEDS ORDERED: Morphine Sulfate Oral CONC 10 MG/0.5 ML ORAL.SYG SL PRN (16:00)
[2022-04-14] MEDS ORDERED: polyethylene glycoL 3350 17 GM POWD.PACK PO PRN (16:00)
[2022-04-14] MEDS ORDERED: Ipratropium/Albuterol Neb 3 ML IH PRN (16:00)
[2022-04-14] MEDS ORDERED: (Colestipol Hcl [Colestid] 1 GM Tablet) PO PRN (16:27)
[2022-04-14] MEDS: *HR* Methadone 5 MG TABLET PO SCH ×2 (17:19→23:28)
[2022-04-14] MEDS: Gabapentin 300 MG CAPSULE PO SCH ×2 (17:20→20:55)
[2022-04-14] MEDS: Furosemide 20 MG TABLET PO SCH (17:24)
[2022-04-14] MEDS: Sennosides/Docusate Sodium TABLET PO SCH (20:54)
[2022-04-14] MEDS: rOPINIRole 0.25 MG TABLET PO SCH (20:54)
[2022-04-14] MEDS: Mirtazapine 15 MG TABLET PO SCH (20:54)
[2022-04-14] MEDS: traZODone 50 MG TABLET PO SCH (20:55)
[2022-04-15 06:03] LABS: Basophils % 0.1 %; Mean Platelet Volume 10.9 fL (9.4-12.4)
[2022-04-15 06:05] LABS: Eosinophils % 0.1 %; Hematocrit 30.1 % (35.3-44.9); Hemoglobin 10.1 g/dL (11.5-15.4); Immature Granulocytes % 0.4 % (0-4); Immature Platelets 5.1 % (1.1-6.1); Lymphocytes # 1.5 K/mcL (0.6-4.6); Lymphocytes % 20.2 %; Mean Corpuscular HGB Conc 33.6 g/dL (31.6-35.5); Mean Corpuscular Hemoglobin 32.3 pg (28.0-33.3); Mean Corpuscular Volume 96.2 fL (83.0-100.0); Monocytes # 1.1 K/mcL (0.0-1.3); Monocytes % 14.9 %; Platelet Count 120 K/mcL (140-400); Red Blood Count 3.13 M/mcL (3.82-4.97); Red Cell Distribution Width 21.4 % (11.5-14.5); Segmented Neutrophils % 64.3 %; White Blood Count 7.4 K/mcL (4.3-11.1)
[2022-04-15 06:06] LABS: Neutrophils # 4.8 K/mcL (1.6-8.9)
[2022-04-15 06:13] LABS: INR 1.6; Prothrombin Time 18.1 Seconds (9.4-12.1)
[2022-04-15 06:52] LABS: Calcium 7.6 mg/dL (8.6-10.3); Magnesium 1.4 mg/dL (1.6-2.6); Potassium 4.3 mEq/L (3.5-5.1)
[2022-04-15 06:55] LABS: Albumin 1.9 g/dL (3.5-5.7); Albumin/Globulin Ratio 0.8 (1.1-2.2); Bilirubin,Direct 2.9 mg/dL (0.0-0.2); Bilirubin,Indirect 2.2 mg/dL (0.0-1.0); Bilirubin,Total 5.1 mg/dL (0.3-1.0); Globulin 2.3 g/dL (2.4-3.5); Total Protein 4.2 g/dL (6.4-8.9)
[2022-04-15] MEDS: Furosemide 20 MG TABLET PO SCH ×2 (09:36→16:04)
[2022-04-15] MEDS: Gabapentin 300 MG CAPSULE PO SCH ×3 (09:37→19:53)
[2022-04-15] MEDS: *HR* Methadone 5 MG TABLET PO SCH ×3 (09:37→23:33)
[2022-04-15] MEDS: Spironolactone 25 MG TABLET PO SCH (09:37)
[2022-04-15] MEDS: amLODIPine 5 MG TABLET PO SCH (09:38)
[2022-04-15] MEDS: *HR* Enoxaparin 40 MG/0.4 ML SYRINGE SQ SCH (09:38)
[2022-04-15] MEDS: rOPINIRole 0.25 MG TABLET PO SCH (19:52)
[2022-04-15] MEDS: *HR* OxyCODONE Immed Rel 5 MG TABLET PO PRN (19:52)
[2022-04-15] MEDS: traZODone 50 MG TABLET PO SCH (19:53)
[2022-04-15] MEDS: Mirtazapine 15 MG TABLET PO SCH (19:53)
[2022-04-15] MEDS: Sennosides/Docusate Sodium TABLET PO SCH (19:53)
[2022-04-15] MEDS: *HR* OxyCODONE Immed Rel 15 MG TABLET PO PRN (23:33)
[2022-04-16 03:39] LABS: Albumin/Globulin Ratio 0.8 (1.1-2.2); Bilirubin,Direct 2.2 mg/dL (0.0-0.2); Bilirubin,Total 4.2 mg/dL (0.3-1.0); Globulin 2.5 g/dL (2.4-3.5); Magnesium 1.6 mg/dL (1.6-2.6); Total Protein 4.5 g/dL (6.4-8.9)
[2022-04-16 03:49] LABS: Immature Granulocytes % 0.3 % (0-4); Red Cell Distribution Width 20.8 % (11.5-14.5)
[2022-04-16 03:51] LABS: Basophils % 0.2 %; Eosinophils # 0.1 K/mcL (0.0-0.6); Eosinophils % 1.1 %; Hematocrit 30.7 % (35.3-44.9); Hemoglobin 10.1 g/dL (11.5-15.4); Immature Platelets 5.8 % (1.1-6.1); Lymphocytes # 1.5 K/mcL (0.6-4.6); Lymphocytes % 24.1 %; Mean Corpuscular HGB Conc 32.9 g/dL (31.6-35.5); Mean Corpuscular Hemoglobin 32.7 pg (28.0-33.3); Mean Corpuscular Volume 99.4 fL (83.0-100.0); Mean Platelet Volume 11.3 fL (9.4-12.4); Monocytes % 15.6 %; Neutrophils # 3.6 K/mcL (1.6-8.9); Red Blood Count 3.09 M/mcL (3.82-4.97); Segmented Neutrophils % 58.7 %; White Blood Count 6.2 K/mcL (4.3-11.1)
[2022-04-16 03:52] LABS: Platelet Count 91 K/mcL (140-400)
[2022-04-16 03:53] LABS: INR 1.5; Prothrombin Time 16.7 Seconds (9.4-12.1)
[2022-04-16] MEDS: Acetaminophen 325 MG TABLET PO PRN ×2 (05:42→22:18)
[2022-04-16] MEDS: *HR* OxyCODONE Immed Rel 15 MG TABLET PO PRN ×2 (05:42→22:18)
[2022-04-16] MEDS: *HR* Enoxaparin 40 MG/0.4 ML SYRINGE SQ SCH (09:49)
[2022-04-16] MEDS: *HR* Methadone 5 MG TABLET PO SCH ×2 (09:51→17:30)
[2022-04-16] MEDS: Gabapentin 300 MG CAPSULE PO SCH ×3 (09:51→19:40)
[2022-04-16] MEDS: Spironolactone 25 MG TABLET PO SCH (09:53)
[2022-04-16] MEDS: Furosemide 20 MG TABLET PO SCH ×2 (09:53→17:31)
[2022-04-16] MEDS: amLODIPine 5 MG TABLET PO SCH (11:43)
[2022-04-16] MEDS: *HR* OxyCODONE Immed Rel 5 MG TABLET PO PRN ×2 (15:25→19:41)
[2022-04-16] MEDS: rOPINIRole 0.25 MG TABLET PO SCH (19:41)
[2022-04-16] MEDS: traZODone 50 MG TABLET PO SCH (19:41)
[2022-04-16] MEDS: Mirtazapine 15 MG TABLET PO SCH (19:42)
[2022-04-16] MEDS: Sennosides/Docusate Sodium TABLET PO SCH (19:48)
[2022-04-17] MEDS: *HR* Methadone 5 MG TABLET PO SCH ×2 (00:43→09:52)
[2022-04-17] MEDS: *HR* OxyCODONE Immed Rel 15 MG TABLET PO PRN ×3 (03:30→12:56)
[2022-04-17] MEDS: Acetaminophen 325 MG TABLET PO PRN (07:25)
[2022-04-17 08:05] VITALS: O2SAT 93
[2022-04-17] MEDS: Furosemide 20 MG TABLET PO SCH (09:53)
[2022-04-17] MEDS: Gabapentin 300 MG CAPSULE PO SCH (09:53)
[2022-04-17] MEDS: Spironolactone 25 MG TABLET PO SCH (09:53)
[2022-04-17] MEDS: *HR* Enoxaparin 40 MG/0.4 ML SYRINGE SQ SCH (09:57)
[2022-04-17 10:25] LABS: Mean Corpuscular HGB Conc 31.6 g/dL (31.6-35.5); Red Cell Distribution Width 19.3 % (11.5-14.5)
[2022-04-17 10:27] LABS: Basophils % 0.4 %; Eosinophils # 0.1 K/mcL (0.0-0.6); Eosinophils % 2.4 %; Hematocrit 32.9 % (35.3-44.9); Hemoglobin 10.4 g/dL (11.5-15.4); Immature Granulocytes % 0.4 % (0-4); Immature Platelets 5.4 % (1.1-6.1); Lymphocytes % 23.3 %; Mean Corpuscular Volume 101.2 fL (83.0-100.0); Mean Platelet Volume 10.5 fL (9.4-12.4); Monocytes # 0.7 K/mcL (0.0-1.3); Monocytes % 14.6 %; Neutrophils # 2.9 K/mcL (1.6-8.9); Red Blood Count 3.25 M/mcL (3.82-4.97); Segmented Neutrophils % 58.9 %; White Blood Count 4.9 K/mcL (4.3-11.1)
[2022-04-17 10:30] LABS: Lymphocytes # 1.1 K/mcL (0.6-4.6)
[2022-04-17 10:31] LABS: Platelet Count 90 K/mcL (140-400)
[2022-04-17 10:32] LABS: INR 1.5; Prothrombin Time 17.1 Seconds (9.4-12.1)
[2022-04-17 10:46] LABS: Calcium 7.3 mg/dL (8.6-10.3); Magnesium 1.7 mg/dL (1.6-2.6); Potassium 3.8 mEq/L (3.5-5.1)
[2022-04-17 10:47] LABS: Albumin 2.2 g/dL (3.5-5.7); Albumin/Globulin Ratio 0.8 (1.1-2.2); Bilirubin,Direct 1.8 mg/dL (0.0-0.2); Bilirubin,Indirect 1.8 mg/dL (0.0-1.0); Bilirubin,Total 3.6 mg/dL (0.3-1.0); Globulin 2.6 g/dL (2.4-3.5); Total Protein 4.8 g/dL (6.4-8.9)
[2022-04-17 10:48] LABS: Influenza A PCR Negative (Negative); Influenza B PCR Negative (Negative); Resp. Syncytial Virus PCR Negative (Negative)
[2022-04-17 11:17] LABS: SARS-CoV-2 by PCR (In House) Negative (Negative)
[2022-04-17 11:26] VITALS: BP 91/52; PULSE 66; TEMP 98.1
== END 2022-04-17 13:39 | disposition hospice, home (50) | DRG 435 ==
LOC: 2ANU 10:37 → EMEROOARM 10:37 → SUATTDRO 15:27 → 2ANU 16:02
PROVIDERS: ADMIT Pharmacist; ATTEND Pharmacist